=== PATIENT | female | born 1985 | race Caucasian/White ===

== ENCOUNTER 2018-03-24 07:42 | Emergency (ER) | payer BC | END 2018-03-24 10:45 | disposition home or self-care (01) | LOC: ER 07:42 ==

== ENCOUNTER → 2020-12-03 | Outpatient (CLI) | payer BC ==
[~2020-12-03] MED LIST: ACYC400T21 PO; FERR-57 PO; IBP600T1 PO; PREN1TAB39 PO; TRAM-21 PO
--- NOTE | 2020-12-03 11:13 | Diagnostic Imaging Report ---
Indication: Palpable lumps both breasts. Sonographic interrogation of all 4 quadrants as well as retroareolar and axillary regions of both breasts was performed. On the right, no sonographic abnormality is seen. No solid or cystic mass is identified. On the left, there is a tiny cyst at the 6:00 retroareolar region measuring 4 mm in size. No solid mass is detected. No other abnormalities are seen. IMPRESSION: BI-RADS Category 2 No suspicious sonographic abnormality is seen to explain patient's palpable abnormalities. Continued close clinical and self breast exam is recommended to confirm stability. Consideration should also be given to performance of a diagnostic mammogram. ACR BI-RADS Category 2: Benign findings. Dictated by: Dictated on workstation # [id number]
== END ==
LOC: RAD 09:15
PROVIDERS: ATTEND Obstetrics & Gynecology
DX: N63.10 Unspecified lump in the right breast, unspecified quadrant (principal)

== ENCOUNTER 2021-06-15 05:29 | Outpatient (CLI) | payer BC ==
[~2021-06-15] VITALS: Ht 167.7 cm; Wt 59.1 kg
== END 2021-06-15 09:36 | disposition home or self-care (01) ==
LOC: PREOP 05:29
PROVIDERS: ATTEND Otolaryngology Otolaryngology/Facial Plastic Surgery
DX: Z01.818 Encounter for other preprocedural examination (principal)

== ENCOUNTER 2021-06-17 06:34 | Day surgery (SDC) | payer BC ==
[~2021-06-17] VITALS: Ht 167.7 cm; Wt 59.1 kg
[2021-06-17] VITALS (11 sets, daily range): BP systolic 108–131; BP diastolic 62–84
[2021-06-17] MEDS ORDERED: LACTATED RINGERS 1,000 ML IV PRN (07:15)
--- NOTE | 2021-06-17 07:30 | Progress Note-Pre Operative ---
Pre-Operative Progress Note H&P Reviewed The H&P was reviewed, patient examined and no changes noted. Date Seen by Provider: Jun 17, 2021 Time Seen by Provider: 07:00 Date H&P Reviewed: Jun 17, 2021 Time H&P Reviewed: 07:00 Pre-Operative Diagnosis: Chronic Right ESTEFANY JOSE D REZA MD Jun 17, 2021 07:30
--- NOTE | 2021-06-17 07:31 | Progress Note-Post Operative ---
Post-Operative Progess Note Surgeon (s)/Magneto Repairer (s) Surgeon JOSE D REZA MD Magneto Repairer n/a Pre-Operative Diagnosis Chronic Right ESTEFANY Post-Operative Diagnosis same Post-Op Procedure Note Date of Procedure: Jun 17, 2021 Name of Procedure Performed: Right Myringotomy wiht Tube Description & Findings Description and Findings: n/a Anesthesia Type lma Estimated Blood Loss minimal Packing none. Specimen(s) collected/removed none JOSE D REZA MD Jun 17, 2021 07:31
[2021-06-17 08:31] LABS: BASOPHILS # (AUTO) 0.1 10^3/uL (0.0-0.1); BASOPHILS % (AUTO) 1 % (0-10); EOSINOPHILS # (AUTO) 0.1 10^3/uL (0.0-0.3); EOSINOPHILS % (AUTO) 1 % (0-10); HEMATOCRIT 39 % (35-52); HEMOGLOBIN 12.9 g/dL (11.5-16.0); LYMPHOCYTES # (AUTO) 1.7 10^3/uL (1.0-4.0); LYMPHOCYTES % (AUTO) 30 % (12-44); MEAN CORPUSCULAR HEMOGLOBIN 30 pg (25-34); MEAN CORPUSCULAR HGB CONC 33 g/dL (32-36); MEAN CORPUSCULAR VOLUME 90 fL (80-99); MEAN PLATELET VOLUME 10.5 fL (9.0-12.2); MONOCYTES # (AUTO) 0.5 10^3/uL (0.0-1.0); MONOCYTES % (AUTO) 10 % (0-12); NEUTROPHILS # (AUTO) 3.4 10^3/uL (1.8-7.8); NEUTROPHILS % (AUTO) 59 % (42-75); PLATELET COUNT 301 10^3/uL (130-400); WHITE BLOOD COUNT 5.7 10^3/uL (4.3-11.0)
[2021-06-17] MEDS ORDERED: ONDANSETRON 4 MG/2 ML (SDV) Z0FRAN ONE (08:41)
[2021-06-17] MEDS ORDERED: proPOfol 200 MG/20 ML (DIPRIVAN) VIAL IV ONE (08:41)
[2021-06-17] MEDS ORDERED: LIDOCAINE PF 2% 5 ML (XYLOCAINE) VIAL ONE (08:41)
[2021-06-17] MEDS ORDERED: fentaNYL INJ 100 MCG/2 ML AMP ONE (08:41)
[2021-06-17] MEDS ORDERED: MIDAZOLAM 2 MG/2 ML (VERSED) VIAL ONE (08:42)
[2021-06-17] MEDS ORDERED: CIPR5DRO OP (09:37)
--- NOTE | 2021-06-17 09:46 | Anesthesia-General Post-Op ---
General Patient Condition Mental Status/LOC: Same as Preop Cardiovascular: Satisfactory Nausea/Vomiting: Absent Respiratory: Satisfactory Pain: Controlled Complications: Absent Post Op Complications Complications None Follow Up Care/Instructions Patient Instructions None needed. Anesthesia/Patient Condition Patient Condition Patient is doing well, no complaints, stable vital signs, no apparent adverse anesthesia problems. No complications reported per nursing. AVA MAGAÑA CRNA Jun 17, 2021 09:46
[2021-06-17] MEDS ORDERED: SEVOFLURANE (ULTANE) 15 ML INHAL SOLN ONE (10:36)
== END 2021-06-17 11:15 | disposition home or self-care (01) ==
LOC: SDC 06:34
PROVIDERS: ATTEND Otolaryngology Otolaryngology/Facial Plastic Surgery
DX: H65.21 Chronic serous otitis media, right ear (principal); H92.11 Otorrhea, right ear; J35.3 Hypertrophy of tonsils with hypertrophy of adenoids
CPT/HCPCS: 36415; 84703; 85025; 87081

== ENCOUNTER → 2021-09-01 | Outpatient (CLI) | payer BC ==
[~2021-09-01] MED LIST changes: +CIPR5DRO OP
--- NOTE | 2021-09-01 13:12 | Diagnostic Imaging Report ---
PROCEDURE: US Non-ob pelvis comp/trans. TECHNIQUE: Multiple realtime grayscale images were obtained of the pelvis in various projections endovaginally. Transabdominal imaging was also performed. INDICATION: Dyspareunia FINDINGS: Uterus measures 8.4 x 5.4 x 6.5 cm. Endometrial stripe is 1.2 cm. There is a heterogeneous myometrial mass measuring 4 cm in the fundus. There is a 1 cm nabothian cyst. The right ovary measures 2.8 x 2.2 x 2.6 cm. There is a simple cyst measuring 2.4 cm. Left ovary measures 3.8 x 2 x 2.7 cm. There is normal blood flow to both ovaries. There is no free fluid. IMPRESSION:. 1. The myometrial mass consistent with fibroid measuring 4 cm. 2. Nabothian cyst 3. Simple appearing 2.4 cm cyst right ovary. Dictated by: Dictated on workstation # [id number]
== END ==
LOC: RAD 11:00
PROVIDERS: ATTEND Obstetrics & Gynecology
DX: N88.8 Other specified noninflammatory disorders of cervix uteri (principal); N83.201 Unspecified ovarian cyst, right side
CPT/HCPCS: 76830; 76856